=== PATIENT | female | born 1990 | race American Indian/Alaskan Native ===

== ENCOUNTER 2017-01-10 08:15 | Day surgery (SDC) | payer MEDICAID ==
--- NOTE | 2017-01-10 10:11 | Discharge Summary ---
Short Stay Discharge Plan Activity: no restrictions Weight Bearing Status: Full Weight Bearing Diet: regular Wound: remove dressing (72hrs) Follow up with: [facility] [Other] - 6 Weeks WORK,DWAYNE Stringer JR, MD [Staff Physician] - 7 Days
--- NOTE | 2017-01-10 10:12 | Short Stay Summary ---
Short Stay Documentation Date of service: 01/10/17 - Allergies and Medications Current Medications: Allergies No Known Allergies Allergy (Unverified 01/05/17 15:54) Home Medications Medication Instructions Recorded Confirmed Last Taken Type No Known Home Medications [No 01/05/17 01/05/17 Unknown History Reported Home Medications] - Brief post op/procedure progress note Date of procedure: 01/10/17 Pre-op diagnosis: Macromastia Post-op diagnosis: same Procedure: Bilateral Breast Reduction Anesthesia: GETA Surgeon: DWAYNE MERIDA JR Estimated blood loss: 50-100ml Specimen disposition: to lab Condition: stable - Disposition Condition at discharge: Good Disposition: DC-01 TO HOME OR SELFCARE Short Stay Discharge Plan Follow up with: [facility] [Other] - 6 Weeks DWAYNE MERIDA JR, MD [Staff Physician] - 7 Days
[2017-01-10] MEDS ORDERED: ANCEF/STERILE WATER 2 GM/20 ML IV NR (11:00)
[2017-01-10] MEDS ORDERED: DIPRIVAN 10 MG/ML IV ONE ×2 (11:28→12:51)
[2017-01-10] MEDS ORDERED: XYLOCAINE MPF 2% ONE (11:28)
[2017-01-10] MEDS ORDERED: DILAUDID ONE ×3 (11:28→18:53)
[2017-01-10] MEDS ORDERED: QUELICIN ONE (11:30)
[2017-01-10] MEDS ORDERED: NEO SYNEPHRINE/NS Syringe(OR USE) IV ONE (11:30)
[2017-01-10] MEDS ORDERED: APRESOLINE ONE (11:30)
--- NOTE | 2017-01-10 11:36 | Anesthesia Consultation ---
Anesthesia Consult and Med Hx Date of service: 01/10/17 - Airway Anesthetic Teeth Evaluation: Good ROM Head & Neck: Adequate Mental/Hyoid Distance: Adequate Mallampati Class: Class II Intubation Access Assessment: Probably Good - Pulmonary Exam CTA: Yes - Cardiac Exam Cardiac Exam: RRR - Pre-Operative Health Status ASA Pre-Surgery Classification: ASA2 Proposed Anesthetic Plan: General - Pulmonary Hx Smoking: No Hx Sleep Apnea: No - Central Nervous System Hx Psychiatric Problems: No - Hematic Hx Anemia: Yes - Other Systems Hx Alcohol Use: Yes (2 BEERS PER DAY) Hx Cancer: No Hx Obesity: Yes
--- NOTE | 2017-01-10 11:37 | Anesthesia Day of Surgery ---
Anesthesia Day of Surgery - Day of Surgery Patient Examined: Yes Patient H&P Reviewed: Yes Patient is NPO: Yes
[2017-01-10] MEDS ORDERED: PERCOCET 5/325 PO PRN (11:38)
[2017-01-10] MEDS ORDERED: ZOFRAN IV PRN ×2 (11:38→16:08)
[2017-01-10] MEDS ORDERED: VERSED IV NR (12:00)
[2017-01-10] MEDS ORDERED: LACTATED RINGERS 1,000 ML IV SCH (12:00)
[2017-01-10] MEDS ORDERED: PEPCID PO NR (12:00)
[2017-01-10] MEDS ORDERED: ZEMURON IV ONE (12:32)
[2017-01-10] MEDS ORDERED: NACL 0.9% IR ONE (12:58)
[2017-01-10] MEDS ORDERED: LACTATED RINGERS 1,000 ML ONE (14:43)
--- NOTE | 2017-01-10 16:24 | Operative Report ---
Operative Report Operative Report: 01/10/17 Preoperative diagnosis: Macromastia Postoperative diagnosis: Same Procedure: Bilateral breast reduction Surgeon: Isidro Pinto M.D. [employer] Supervisor: Sanjay Cabrera CSA Description of procedure: The patient was brought into the operating room and placed on the table in a supine position. Following administration of general anesthesia bilateral breasts were prepped with a Betadine solution and draped in the usual sterile manner. #10 blade scalpel was used to incise modified Hardin pattern skin markings. #10 blade scalpel and scissors were used to de-epithelialized an inferior dermal pedicle. Surgical incisions through modified Hardin pattern incisions were deepened through subcutaneous fat and breast tissue using the electrocautery. Skin flaps were raised in the standard manner as was fashioning of an inferior central mound pedicle. Hemostasis achieved using the electrocautery. Breast tissue was sent to pathology as a specimen. Closure was performed over 10 mm Marcos drains using interrupted and running subcuticular 2-0 Monocryl sutures. Mastisol Steri-Strips sterile dressings were applied. Patient tolerated procedure well and returned to recovery room in stable condition. Isidro Pinto M.D.
[2017-01-10] MEDS ORDERED: NORCO 5/325 PO PRN (16:50)
[2017-01-10] MEDS: DILAUDID IV PRN ×2 (18:58→19:15)
[2017-01-10] MEDS ORDERED: ZOFRAN ONE (19:30)
[2017-01-10 19:36] VITALS: BP 139/75
== END 2017-01-10 20:15 | disposition home or self-care (01) ==
LOC: OR 08:15
PROVIDERS: ATTEND Plastic Surgery
DX: N62 Hypertrophy of breast (principal); J45.909 Unspecified asthma, uncomplicated; D64.9 Anemia, unspecified; E66.9 Obesity, unspecified; Z68.35 Body mass index [BMI] 35.0-35.9, adult; Z72.89 Other problems related to lifestyle; Z82.49 Family history of ischemic heart disease and other diseases of the circulatory system; Z83.3 Family history of diabetes mellitus
CPT/HCPCS: 19318; 81025; 88305; J0330; J0360; J0690; J1170; J2250; J2370; J2405; J2704; J7120